=== PATIENT | female | born 2000 | race African-American/Black ===

== ENCOUNTER 2021-02-15 13:31 | Outpatient (CLI) | payer OTHER | END 2021-02-15 13:32 | disposition home or self-care (01) | LOC: DTY/OP 13:31 | PROVIDERS: ATTEND Surgery | DX: E66.01 Morbid (severe) obesity due to excess calories (principal) | CPT/HCPCS: 97802 ==

== ENCOUNTER 2021-08-20 09:50 | Outpatient (CLI) | payer OTHER | END 2021-08-20 09:51 | disposition home or self-care (01) | LOC: RAD 09:50 | PROVIDERS: ATTEND Family Medicine | DX: Z01.818 Encounter for other preprocedural examination (principal) | CPT/HCPCS: 71046 ==

== ENCOUNTER 2021-12-24 11:21 | Outpatient (CLI) | payer OTHER ==
[2021-12-24 12:43] LABS: #Eosinphils 0.5 10x3/uL (0.0-0.5); #Monocytes 0.7 10x3/uL (0.0-1.1); #Neutrophils 6.1 10x3/uL (1.5-8.4); %Basophils 0.4 % (0.0-2.0); %Eosinophils 5.6 % (0.0-6.0); %Lymphocytes 21.7 % (18.0-47.0); %Monocytes 7.1 % (0.0-10.0); %Neutrophils 64.9 % (40.0-75.0); Hemoglobin 12.8 g/dL (12.0-15.5); Mean Corpuscular HGB CONC 31.2 g/dL (32.0-36.0); Mean Corpuscular Hemoglobin 24.5 pg (27.0-33.0); Mean Corpuscular Volume 78.4 fl (81.6-98.3); Mean Platelet Volume 9.4 fl (7.4-10.4); Platelet Count 388 10x3/uL (150-450); RBC Distribution Width 15.7 % (11.5-14.5); Red Blood Cell (RBC) Count 5.23 10x6/uL (3.90-5.03); White Blood Cell (WBC) Count 9.4 10x3/uL (3.5-10.5)
[2021-12-24 12:52] LABS: BHCG - Serum Negative (NEGATIVE); Pregs Control Background? CLEAR/WHITE (CLR/WHITE); Pregs Control Bar Appear? YES (CONTROL BAR)
[2021-12-24 13:04] LABS: ALT (SGPT) 13 U/L (8-55); AST (SGOT) 12 U/L (5-34); Albumin 3.8 g/dL (3.5-5.0); Alkaline Phosphatase 56 U/L (40-100); Anion Gap 12 mmol/L (10-20); BUN (Urea Nitrogen) 10 mg/dL (7.0-18.7); Bilirubin, Total 0.4 mg/dL (0.2-1.2); Calc. Creatinine Clearance 0 mL/min (70-130); Carbon Dioxide 24 mmol/L (22-29); Chloride 106 mmol/L (98-107); Globulin 3.7 g/dL (2.4-3.5); Glucose 81 mg/dL (70-105); Potassium 4.2 mmol/L (3.5-5.1); Protein, Total 7.5 g/dL (6.0-8.3); Sodium 138 mmol/L (136-145)
[2021-12-24 17:52] LABS: Hemoglobin A1c 5.5 % (4.0-6.0)
== END 2021-12-24 11:22 | disposition home or self-care (01) ==
LOC: LABBT 11:21
PROVIDERS: ATTEND Surgery
DX: Z01.812 Encounter for preprocedural laboratory examination (principal); E66.01 Morbid (severe) obesity due to excess calories
CPT/HCPCS: 80053; 83036; 84703; 85025

== ENCOUNTER 2021-12-24 11:30 | Inpatient (IN) | payer OTHER ==
[2021-12-27] MEDS ORDERED: Heparin 5,000 UNITS/ML VIAL ONE (08:35)
[2021-12-27] MEDS ORDERED: Scopolamine 1.5 mg/72 hour Patch ONE (09:34)
[2021-12-27] MEDS ORDERED: Ketamine 50 MG/ML (10ML VIAL) ONE (10:02)
[2021-12-27] MEDS ORDERED: SUGAMMADEX SODIUM 200 MG/2 ML VIAL ONE ×2 (10:02→10:31)
[2021-12-27] MEDS ORDERED: Fentanyl 100 MCG/2 ML VIAL ONE ×2 (10:02→12:12)
[2021-12-27] MEDS ORDERED: Bupivacaine 0.25% HCL 30 ML VIAL ONE (10:12)
[2021-12-27] MEDS ORDERED: Xylocaine 1% w/ Epi 1:100K 10 ML VIAL ONE (10:12)
[2021-12-27] MEDS ORDERED: Bupivacaine PF 0.5% 30 ML VIAL ONE (10:12)
[2021-12-27] MEDS ORDERED: Sodium Chloride 0.9% 0 ML ONE (10:24)
[2021-12-27] MEDS ORDERED: ceFAZolin 2 GM/Dextrose 50 ML IVPB ONE (10:30)
[2021-12-27] MEDS ORDERED: PHENYLEPHRINE-NS 100 MCG/ML 10 ML SYRINGE ONE (10:42)
[2021-12-27] MEDS ORDERED: Glycopyrrolate 0.2 MG/ML 5 ML SYRINGE ONE (10:42)
[2021-12-27] MEDS ORDERED: Lidocaine 1% PF 5 ML VIAL ONE (10:42)
[2021-12-27] MEDS ORDERED: ePHEDrine 50 MG/ML VIAL ONE (10:42)
[2021-12-27] MEDS ORDERED: Ketorolac Tromethamine 30 MG/ML VIAL ONE (10:42)
[2021-12-27] MEDS ORDERED: Rocuronium Bromide 10 MG/ML (10ML VIAL) ONE (10:42)
[2021-12-27] MEDS ORDERED: Dexamethasone 20 MG/5 ML VIAL ONE (10:42)
[2021-12-27] MEDS ORDERED: Ondansetron PF 4 MG/2 ML Vial ONE (10:42)
[2021-12-27] MEDS ORDERED: PROPOFOL 200 MG/20 ML VIAL ONE (10:42)
[2021-12-27] MEDS ORDERED: Promethazine HCl 25 MG/ML VIAL IVPB PRN (11:32)
[2021-12-27] MEDS ORDERED: Ondansetron HCl/PF 4 MG/2 ML Vial IVP PRN (11:32)
[2021-12-27] MEDS ORDERED: Promethazine HCl 25 MG/ML VIAL IM PRN ×3 (11:32→11:59)
[2021-12-27] MEDS ORDERED: Hydrocodone-Acetamin 15 ML UDCUP PO PRN (11:50)
[2021-12-27] MEDS ORDERED: diphenhydrAMINE 50 MG/ML VIAL IVP PRN ×2 (11:50→11:59)
[2021-12-27] MEDS ORDERED: hydrALAZINE 20 MG/ML VIAL SLOW IVP PRN (11:50)
[2021-12-27] MEDS ORDERED: Ondansetron PF 4 MG/2 ML Vial IVP PRN (11:50)
[2021-12-27] MEDS ORDERED: Dextrose 50% Abboject 50 ML SYRINGE SLOW IVP PRN (11:50)
[2021-12-27] MEDS ORDERED: Dextrose 5% in Water 1,000 ML IV PRN (11:50)
[2021-12-27] MEDS ORDERED: diphenhydrAMINE 50 MG/ML VIAL IM PRN (11:59)
[2021-12-27] MEDS ORDERED: Naloxone HCl 0.4 mg/ml Vial IV PRN (11:59)
[2021-12-27] MEDS ORDERED: diphenhydrAMINE 25 MG CAP PO PRN (11:59)
[2021-12-27] MEDS ORDERED: Zolpidem Tartrate 5 MG TAB PO PRN (11:59)
[2021-12-27] MEDS ORDERED: fentaNYL Citrate/PF 2,000 MCG in Sodium Chloride 0.9% 60 ML IV PRN (11:59)
[2021-12-27] MEDS ORDERED: Communication Order-Pharmacy FS SCH (12:00)
[2021-12-27 13:36] VITALS: BMI 49.9
[2021-12-27] MEDS: Ketorolac Tromethamine 30 MG/ML VIAL IVP SCH ×3 (13:51→23:40)
[2021-12-27] MEDS: D5 1/2 NS w/20 mEq KCL 1,000 ML IV SCH ×3 (15:35→23:40)
[2021-12-27] MEDS: CEFAZOLIN 2 GM in Sodium Chloride 0.9% 100 ML IVPB SCH (18:07)
[2021-12-27] MEDS: Ondansetron PF 4 MG/2 ML Vial IVP PRN (19:58)
[2021-12-28] MEDS: CEFAZOLIN 2 GM in Sodium Chloride 0.9% 100 ML IVPB SCH (02:54)
[2021-12-28 05:17] LABS: #Lymphocytes 1.3 thou/uL (1.20-3.40); #Monocytes 1.3 thou/uL (0.11-0.59); %Basophils 0.1 % (0.0-1.0); %Eosinophils 0.2 % (0.0-10.0); %Lymphocytes 8.7 % (28.0-48.0); %Monocytes 8.6 % (0.0-4.0); %Neutrophils 82.3 % (31.0-61.0); Hemoglobin 12.1 g/dL (12.0-16.0); Mean Corpuscular HGB CONC 30.6 g/dL (32.0-36.0); Mean Corpuscular Hemoglobin 25.9 pg (25.0-35.0); Mean Corpuscular Volume 84.6 fL (78.0-98.0); Mean Platelet Volume 7.3 fL (7.4-10.4); Platelet Count 341 thou/uL (130-400); RBC Distribution Width 14.8 % (11.5-14.5); Red Blood Cell (RBC) Count 4.66 mill/uL (4.00-5.20); White Blood Cell (WBC) Count 14.6 thou/uL (4.8-10.8)
[2021-12-28 05:41] LABS: Anion Gap 19 mmol/L (10-20); BUN (Urea Nitrogen) 4 mg/dL (7.0-18.7); Calc. Creatinine Clearance 279 mL/min (70-130); Calcium 8.9 mg/dL (7.8-10.44); Carbon Dioxide 16 mmol/L (22-29); Chloride 105 mmol/L (98-107); Glucose 88 mg/dL (70-105); Potassium 4.6 mmol/L (3.5-5.1); Sodium 135 mmol/L (136-145)
[2021-12-28] MEDS: Ketorolac Tromethamine 30 MG/ML VIAL IVP SCH ×2 (05:57→11:29)
[2021-12-28] MEDS: Ondansetron PF 4 MG/2 ML Vial IVP PRN ×2 (05:57→13:37)
[2021-12-28] MEDS ORDERED: Hydrocodone-Acetamin 15 ML UDCUP PO PRN (07:11)
[2021-12-28] MEDS ORDERED: Pantoprazole 40 MG VIAL IVP SCH (09:00)
[2021-12-28] MEDS ORDERED: Enoxaparin Sodium 40 MG/0.4 ML SYRINGE SC SCH (09:00)
[2021-12-28 12:10] VITALS: BP 141/91; TEMP 97.9
[2021-12-28] MEDS: D5 1/2 NS w/20 mEq KCL 1,000 ML IV SCH (12:23)
== END 2021-12-28 15:40 | disposition home or self-care (01) | DRG 621 ==
LOC: SURG A 12-27 07:41 → SURG B 12-27 13:23
PROVIDERS: ADMIT Surgery; ATTEND Surgery
PROC: 0DB64Z3 Excision of Stomach, Percutaneous Endoscopic Approach, Vertical (ICD-10-PCS; principal; 2021-12-27)
DX: E66.01 Morbid (severe) obesity due to excess calories (principal); Z68.42 Body mass index [BMI] 45.0-49.9, adult; J45.909 Unspecified asthma, uncomplicated
CPT/HCPCS: 36415; 80048; 85025; 88307; 94760; C1713; C9113; J0690; J1100; J1644; J1650; J1885; J2405; J2550; J2704; J3010; J3480; J3490; S0020